=== PATIENT | male | born 1975 | race Two or more races ===

== ENCOUNTER 2022-09-17 19:09 | Emergency (ER) | payer MEDICAID ==
[~2022-09-17 19:09] MED LIST: NO HOME MEDS
== END 2022-09-18 01:33 | disposition left against medical advice (07) ==
LOC: ER 19:09
DX: M54.2 Cervicalgia (principal); Z53.21 Procedure and treatment not carried out due to patient leaving prior to being seen by health care provider

== ENCOUNTER 2023-05-18 23:46 | Emergency (ER) | payer MEDICAID ==
[~2023-05-18] VITALS: Ht 160 cm; Wt 55.8 kg
[2023-05-18 23:54] VITALS: BP 138/94; TEMP 98.3
[2023-05-19] MEDS ORDERED: AMOX500C2 PO (01:03)
[2023-05-19] MEDS ORDERED: amoxicillin 250mg capsule PO ONE (01:05)
== END 2023-05-19 01:27 | disposition home or self-care (01) ==
LOC: ER 23:46
DX: K04.7 Periapical abscess without sinus (principal); F12.10 Cannabis abuse, uncomplicated; F15.10 Other stimulant abuse, uncomplicated; Z59.00 Homelessness unspecified; Z79.899 Other long term (current) drug therapy
CPT/HCPCS: 99283